=== PATIENT | female | born 1960 | race Caucasian/White ===

== ENCOUNTER 2016-11-11 05:32 | Inpatient (IN) | payer OTHER ==
[2016-10-27 08:48] LABS: HEMATOCRIT 35.8 % (37.0-47.0); HEMOGLOBIN 12.2 gm/dL (12.0-15.0); MCH 31.9 pg (26.0-34.0); MCV 93.8 fL (80.0-100.0); RBC 3.82 mil/uL (4.20-5.00); RDW 13.1 % (10.5-14.5); WBC 6.5 thou/uL (4.0-11.0)
[2016-10-27 08:49] LABS: URINE BILIRUBIN NEGATIVE (Negative); URINE BLOOD TRACE (Negative); URINE COLOR YELLOW; URINE GLUCOSE-RANDOM* NEGATIVE (Negative); URINE KETONES NEGATIVE (Negative); URINE LEUKOCYTES-REFLEX NEGATIVE (Negative); URINE PROTEIN (DIPSTICK) NEGATIVE (Negative); URINE UROBILINOGEN 0.2 E.U./dl (0.2-1.0)
[2016-10-27 08:56] LABS: ALBUMIN 4.1 g/dL (3.4-5.0); CALCIUM 9.9 mg/dL (8.5-10.1); CREATININE 0.8 mg/dL (0.6-1.0); POTASSIUM 3.8 mmol/L (3.5-5.1)
[2016-10-27 09:17] LABS: PROTIME 9.8 Seconds (9.3-11.4)
[2016-11-11] VITALS (10 sets, daily range): BP systolic 110–135; BP diastolic 58–78
[~2016-11-11] VITALS: Ht 175.3 cm; Wt 77.1 kg
--- NOTE | ~2016-11-11 | EKG ---
[place] [address] [facility] [place] [address] ELECTROCARDIOGRAM REPORT Name: [facility]GA [facility] Room #: PRE IN EmilianoUnique#: [id number] Admission: Attend Phys: Jose Soliman MD Discharge: Date of : 56 Report #: [id number] THIS REPORT FOR: //name// [facility] Test Date: 2016-10-27 Test Time: 08:46:30 Pat Name: MEÑO COLUNGA Department: Room: Gender: F State Director: claire : 1960 Requested By: Jose Soliman Order Number: [id number] MD: Sergio Drake Measurements Intervals Continental Rate: 58 P: 22 UT: 191 QRS: 10 QRSD: 89 T: 34 QT: 427 QTc: 420 Interpretive Statements Incomplete analysis due to missing data in precordial lead(s) Sinus rhythm Missing lead(s): V6 No previous ECG available for comparison Electronically Signed On 10-27-2016 16:31:54 CDT by Sergio Drake [email or web address] <ELECTRONICALLY SIGNED> By: Sergio Drake MD, [facility] 10/27/16 1631 0846 5 Sergio Drake MD, FACC /EPI
--- NOTE | ~2016-11-11 | O ---
[facility] [address] OPERATIVE REPORT [facility] Room #: 410-P ADM IN M.R.#: [id number] Admission: 11/11/16 Attend Phys: Jose Soliman MD Discharge: Date of : 56 Report #: [id number] THIS REPORT FOR: //name// CC: TRICE Hernadez DATE OF SERVICE: 11/11/2016 PREOPERATIVE DIAGNOSES: Right knee degenerative joint disease, severe and right foot Juárez's neuroma. POSTOPERATIVE DIAGNOSES: Right knee degenerative joint disease, severe and right foot Juárez's neuroma. PROCEDURE: Right knee total knee arthroplasty and right foot Juárez's neuroma injection. SURGEON: Jose Soliman M.D. SILK WINDING MACHINE OPERATOR: DAVION Graves. INDICATIONS FOR SILK WINDING MACHINE OPERATOR: During the course of operation, extensive manipulation, retraction and limb positioning was required. This was afforded to me by my creative assistant. ANESTHETIC: General. INDICATIONS: See hospital H and P. IMPLANTS UTILIZED: Used a DePuy PFC knee system. We used a cruciate retaining femoral component size 4 narrow, size 3 tibial tray with a 10 mm spacer and a 38 mm oval dome patella. We prepped her right foot dorsum with ChloraPrep, a combination of 1 mL of Celestone and 1 mL of 0.5% Marcaine was infiltrated into the intermetatarsal region, second and third toes, where the patient preoperatively had indicated her pain was located. Care was taken to aspirate prior to infiltration. DESCRIPTION OF PROCEDURE: After adequate general anesthesia had been obtained, the patient's right lower extremity was prepped and draped in the usual meticulous sterile fashion. Limb was exsanguinated with gravity and tourniquet inflated to 300 torr. Anterior midline incision was made, subQ divided sharply. Hemostasis obtained with electrocautery. Medial parapatellar incision was made. We were careful to do a minimal medial release due to the patient's valgus deformity. The knee was flexed. The drill was used to drill the distal [facility] [address] [place] [address] OPERATIVE REPORT Name: MEÑO COLUNGA [facility] Room #: 410-P [facility] IN M.R.#: [id number] Admission: 11/11/16 Attend Phys: Jose Soliman MD Discharge: Date of : 56 Report #: [id number] femur. This hole was enlarged, irrigated, suctioned, and the intramedullary guide placed the full length of the femur. Valgus angle cutting guide was set at 70 degrees, which matched the patient's anatomy. The cutting guide was pinned into position and the distal cut was made. The measuring device determined the size 4 narrow was appropriate size for this patient. We marked the distal femur and impacted the cutting guide into position. The anterior, posterior and chamfer cuts were made. Rongeur was used to remove additional osteophytes. The ACL was transected, tibia translated anteriorly, menisci were excised. Drill was used to drill the central portion of the tibia. This hole was enlarged, irrigated, suctioned, and the intramedullary guide placed the full length of the tibia. Proximal tibial cutting guide placed at appropriate height, proximal tibia cut was made, 3 tray gave us the best coverage on the tibia. We put the trial component in position and the 10 spacer gave us the best flexion and extension gap. Patella was then measured, cutting guide clamped into place, patellar cut was made, 38 template gave us the best coverage. Pedicles were drilled, trial component put in position. It tracked normally. The knee was taken through several cycles of flexion, extension to determine optimal tibial tray position. It was then marked and the tibial keel cuts were made. The distal femur was drilled. We irrigated the knee copiously with antibiotic with both pulse lavage and antibiotic irrigation. We then placed bone plugs in the proximal tibia and the distal femur. The cement was vacuum mixed and when it reached the appropriate consistency, the knee was thoroughly dried and then the tibial tray was cemented in place. Excess cement was removed. The polyethylene was impacted in place and the femur impacted in place and the knee was taken out to 30 degrees of flexion with uniform compression placed across components. Patellar button was then cemented into place and again excess cement was removed. The cement was allowed to fully cure. When it had done so, the knee was irrigated, dried thoroughly, and inspected. Drains were placed superolaterally, deep and superficial. The retinaculum was closed with a combination of interrupted stkzad-wd-zzick #1 Vicryl as well as running #1 Tevdek, subQ closed with 2-0 Monocryl, skin closed with autumn. Sterile compressive dressing applied. Tourniquet then deflated. By: [id number] Jose Soliman MD /nt
--- NOTE | ~2016-11-11 | HC ---
[facility] [place] [address] CONSULTATION Name: MEÑO COLUNGA NALINI Room #: [facility]- ADM IN M.R.#: [id number] Admission: 11/11/16 Attend Phys: Jose Soliman MD Discharge: Date of : 56 Report #: [id number] THIS REPORT FOR: //name// CC: Jose Hernadez DATE OF SERVICE: 11/11/2016 The patient was seen for consultation on November 11. REASON FOR CONSULTATION: Medical management. HISTORY OF PRESENT ILLNESS: The patient is a 56-year-old female who underwent right knee replacement surgery earlier today. The patient is doing well, and her pain is controlled. She has no complaints. The patient has no major medical problems. She has history of hypertension, and she takes medications for this. She is on losartan and hydrochlorothiazide. She denies chest pain, shortness of breath, blurry vision, headaches or other symptoms. PAST MEDICAL HISTORY: 1. Hypertension. 2. DJD. CURRENT MEDICATIONS: Reviewed and documented in the patient's chart. FAMILY HISTORY: Reviewed and not pertinent to the patient's current condition. SOCIAL HISTORY: The patient is a pharmacist. She does not smoke cigarettes, and reports social alcohol intake. REVIEW OF SYSTEMS: As above in HPI section, all others negative. PHYSICAL EXAMINATION: GENERAL: The patient is healthy looking middle-aged female who is in no apparent distress. VITAL SIGNS: Blood pressure is 129/68, heart rate is 63 and regular, respirations 16 and temperature is 98.0. HEENT: Pupils are equal. Eye movements are normal. NECK: JVD is not appreciated. The patient has no thyromegaly. RESPIRATORY: Chest moves symmetrically with breathing. LUNGS: Clear to auscultation bilaterally. CARDIOVASCULAR: The patient has regular rhythm and rate. She has no murmurs, gallops or rubs. GASTROINTESTINAL: Abdomen is soft, nondistended and nontender. Bowel sounds [facility] [address] [place] [address] CONSULTATION Name: MEÑO COLUNGA [facility] Room #: [address] [place] [address] [place] [facility].#: [id number] Admission: 11/11/16 Attend Phys: Jose Soliman MD Discharge: Date of : 56 Report #: [id number] are present. The patient has no hepatomegaly or splenomegaly. MUSCULOSKELETAL: The patient has no edema, cyanosis or clubbing. Right leg is in cast. NEUROLOGIC: The patient is alert and oriented x 3. Her examination is nonfocal. SKIN: The patient has no skin lesions. LABORATORY DATA: Couple of weeks ago, BMP and CBC were all normal. ASSESSMENT AND PLAN: 1. Degenerative joint disease, status post right knee replacement surgery earlier today. The patient is recovering well. Further management and plan per orthopedic surgeon. 2. Hypertension, well controlled. Home medications will be continued unchanged. Medications will be held if patient is hypotensive. 3. Deep venous thrombosis prophylaxis. The patient is started on Xarelto. We will continue to follow the patient during the hospitalization. Once again, thank you very much for allowing us to participate in the care of your patient. <ELECTRONICALLY SIGNED> By: Serena Moore MD 11/14/16 1454 1159 [id number] Serena Moore MD /nt
[~2016-11-11 05:32] MED LIST: ASPIR 8181 MG PO; CITRACAL + BON1 EACH PO; FISH OIL + D31 EACH PO; FOSAMAX 70 MG T70 MG PO; HYDROCHLOROTHIA25 M1 PO; LISINOPRIL40 MG PO; LOSARTAN POTAS100 MG PO; MELOXICAM15 MG PO; MULTI VITAMIN1 EACH PO; VITAMIN D32000 UNI1 PO; VITAMIN D35000 UNIT PO
[2016-11-12] VITALS (7 sets, daily range): BP systolic 105–148; BP diastolic 54–64
[2016-11-12 06:06] LABS: ABSOLUTE NEUTROPHILS 11.5 thou/uL (1.4-8.2); BASOPHILS 0.1 % (0.0-2.0); HEMATOCRIT 31.4 % (37.0-47.0); HEMOGLOBIN 10.6 gm/dL (12.0-15.0); MCHC 33.9 g/dL (28.0-37.0); MCV 94.6 fL (80.0-100.0); MONOCYTES 9.3 % (1.0-8.0); PLATELET COUNT 267 thou/uL (150-400); POLYS 80.6 % (36.0-66.0); RBC 3.32 mil/uL (4.20-5.00); RDW 12.7 % (10.5-14.5); WBC 14.3 thou/uL (4.0-11.0)
[2016-11-12 06:10] LABS: MANUAL DIFF NO
[2016-11-12 06:21] LABS: CALCIUM 9.2 mg/dL (8.5-10.1); CREATININE 0.9 mg/dL (0.6-1.0); POTASSIUM 3.2 mmol/L (3.5-5.1)
[2016-11-13 04:00] VITALS: BP 116/60
[2016-11-13 05:19] LABS: HEMATOCRIT 26.5 % (37.0-47.0); MCH 32.5 pg (26.0-34.0); MCV 95.4 fL (80.0-100.0); RBC 2.78 mil/uL (4.20-5.00); RDW 12.8 % (10.5-14.5); WBC 10.3 thou/uL (4.0-11.0)
[2016-11-13] MEDS ORDERED: XARELTO10 MG PO (06:51)
[2016-11-13] MEDS ORDERED: PERCOCET 10-321 EACH PO (06:51)
[2016-11-13] MEDS ORDERED: MS CONTIN15 MG PO (06:51)
[2016-11-13 08:32] VITALS: BP 104/52
[2016-11-13 13:38] VITALS: BP 105/54
[2016-11-13 20:49] VITALS: BP 135/58
[2016-11-14 03:09] VITALS: BP 153/69
[2016-11-14 03:45] LABS: HEMOGLOBIN 9.6 gm/dL (12.0-15.0); MCH 32.4 pg (26.0-34.0); MCHC 34.1 g/dL (28.0-37.0); MCV 94.9 fL (80.0-100.0); RBC 2.96 mil/uL (4.20-5.00); RDW 12.6 % (10.5-14.5); WBC 11.1 thou/uL (4.0-11.0)
[2016-11-14 07:59] VITALS: BP 133/63
[2016-11-14 12:43] VITALS: BP 105/54
== END 2016-11-14 14:40 | disposition home health service (06) | DRG 470 ==
LOC: TBA 05:32 → 4N 05:32 → PRE 08:16 → 4N 10:09 → PRE 11:05 → ENTRNSPT 11-14 14:13 → EDTRNSPTSTS 11-14 14:17 → 4N 11-14 14:40
PROVIDERS: Internal Medicine Endocrinology, Diabetes & Metabolism; Orthopaedic Surgery
PROC: 0SRC0J9 Replacement of Right Knee Joint with Synthetic Substitute, Cemented, Open Approach (ICD-10-PCS; principal; 2016-11-11)
DX: M17.11 Unilateral primary osteoarthritis, right knee (principal); I10 Essential (primary) hypertension; M81.0 Age-related osteoporosis without current pathological fracture; M17.12 Unilateral primary osteoarthritis, left knee; E87.6 Hypokalemia; Z88.1 Allergy status to other antibiotic agents; Z88.2 Allergy status to sulfonamides; Z79.899 Other long term (current) drug therapy; Z23 Encounter for immunization; Z82.49 Family history of ischemic heart disease and other diseases of the circulatory system
CPT/HCPCS: 10790; 50010; 50101; 50415; 50954; 51130; 51225; 51320; 51412; 51771; 52001; 53000; 53078; 53364; 56525; 56527; 62110; 62900; 64042; 64043; 70005

== ENCOUNTER 2017-01-27 05:24 | Inpatient (IN) | payer OTHER ==
[2017-01-12 08:53] LABS: HEMATOCRIT 35.8 % (37.0-47.0); HEMOGLOBIN 11.9 gm/dL (12.0-15.0); MCHC 33.1 g/dL (28.0-37.0); MCV 93.7 fL (80.0-100.0); RBC 3.82 mil/uL (4.20-5.00); RDW 13.8 % (10.5-14.5); WBC 8.8 thou/uL (4.0-11.0)
[2017-01-12 09:03] LABS: URINE BILIRUBIN NEGATIVE (Negative); URINE BLOOD NEGATIVE (Negative); URINE COLOR YELLOW; URINE GLUCOSE-RANDOM* NEGATIVE (Negative); URINE KETONES NEGATIVE (Negative); URINE LEUKOCYTES-REFLEX NEGATIVE (Negative); URINE PROTEIN (DIPSTICK) NEGATIVE (Negative); URINE SPECIFIC GRAVITY <= 1.005 (1.003-1.035); URINE UROBILINOGEN 0.2 E.U./dl (0.2-1.0)
[2017-01-12 09:04] LABS: CALCIUM 10.4 mg/dL (8.5-10.1); CREATININE 0.8 mg/dL (0.6-1.0); POTASSIUM 4.1 mmol/L (3.5-5.1)
[2017-01-12 09:06] LABS: PROTIME 9.9 Seconds (9.3-11.4)
[2017-01-27] VITALS (7 sets, daily range): BP systolic 108–140; BP diastolic 61–83
[~2017-01-27] VITALS: Ht 175.3 cm; Wt 72.6 kg
--- NOTE | ~2017-01-27 | O ---
[facility] [place] [address] OPERATIVE REPORT Name: [facility]ER [facility] Room #: 411-P ADM IN M.R.#: [id number] Admission: 01/27/17 Attend Phys: Jose Soliman MD Discharge: Date of : 56 Report #: [id number] THIS REPORT FOR: //name// CC: TRICE Hernadez DATE OF SERVICE: 01/27/2017 PREOPERATIVE DIAGNOSIS: Left knee degenerative joint disease, severe. POSTOPERATIVE DIAGNOSIS: Left knee degenerative joint disease, severe. PROCEDURE: Left total knee arthroplasty. SURGEON: Jose Soliman M.D. HISTOLOGY TEACHER: DAVION Graves. ANESTHETIC: General. INDICATIONS: See [facility] H and P. IMPLANTS UTILIZED: We used a [employer] knee system. We used a size 7 press-fit cruciate-retaining femur. We used a size 5 tibial tray Na II with an 11-mm spacer and a 32-diameter round patella. DESCRIPTION OF PROCEDURE: After adequate general anesthesia had been obtained, the patient's left lower extremity was prepped and draped in the usual meticulous sterile fashion. Limb was exsanguinated with gravity, tourniquet inflated to 300 torr. Anterior midline incision was made, subQ divided sharply. Hemostasis obtained with electrocautery. Medial parapatellar incision was made. Infrapatellar fat pad excised. Medial release performed. The drill was used to drill the distal femur. This was enlarged, irrigated and suctioned and then the intramedullary guide placed to full length of the femur. The distal femoral cutting guide was placed in 6 degrees of valgus, which matched the patient's anatomy and then we made the distal femoral cut. We used a measuring device to determine the size, a 7 was the appropriate size for this patient. We marked the distal femur and impacted the cutting guide into position. The anterior, posterior and chamfer cuts were made. Rongeur was used to remove additional osteophytes. At this time, the ACL was transected, tibia translated anteriorly and menisci excised. The drill was used to drill central portion of the tibia. This hole was enlarged, irrigated and suctioned and the intramedullary guide placed to full length of the tibia. The proximal tibial cutting guide was placed at [address] [address] OPERATIVE REPORT Name: MEÑO WHEELER [facility] Room #: 411-P [facility] IN M.R.#: [id number] Admission: 01/27/17 Attend Phys: Jose Soliman MD Discharge: Date of : 56 Report #: [id number] appropriate height. Proximal tibia cut was made. We placed the trial components in position with a 7 femur, 5 tray, which gave us the best coverage and 11 spacer and she had the best flexion and extension gap. She was little tight in extension on the lateral side due to her valgus deformity and we released the IT band and this improved the balance. Patella tracked normally. At this time, the patella was measured, cutting guide clamped into place and patellar cut was made. A 32 template gave us the best coverage. Pedicles were drilled, trial component put in position and it tracked normally. At this time, the knee was taken through several cycles of flexion and extension to determine tibial tray rotation. Rotation was marked. The distal femur was punched. The tibial keel cuts were made. We irrigated the knee with both pulse lavage and antibiotic irrigation. We then placed bone plugs in the proximal tibia and distal femur. The cement was vacuum mixed and when it reached the appropriate consistency, the knee was thoroughly dried, the tibial tray was cemented in place and excess cement was removed. The polyethylene was impacted in place and the femur impacted in place. The knee was taken out to 30 degrees of flexion with uniform compression placed across the components. Patellar button was then cemented into place and again excess cement was removed. At this time, irrigation was placed in the wound and allowed to rest in the wound until the cement was fully cured. When it had done so, the knee was irrigated, dried thoroughly and inspected. Drains were placed superolaterally, both deep and superficial. The retinacular layer was closed with combination of interrupted vgqkrg-jn-viufk #1 Vicryl as well as a running #1 Tevdek. SubQ closed with 2-0 Monocryl, skin closed with autumn. Sterile compressive dressing applied. Tourniquet deflated. <ELECTRONICALLY SIGNED> By: Jose Soliman MD 01/29/17 2304 [id number] Jose Soliman MD /nt
[~2017-01-27 05:24] MED LIST changes: +MS CONTIN15 MG PO; +PERCOCET 10-321 EACH PO; +XARELTO10 MG PO
[2017-01-28 04:25] VITALS: BP 127/63
[2017-01-28 05:42] LABS: HEMATOCRIT 28.2 % (37.0-47.0); HEMOGLOBIN 9.9 gm/dL (12.0-15.0); MCH 32.8 pg (26.0-34.0); MCHC 35.2 g/dL (28.0-37.0); MCV 93.1 fL (80.0-100.0); RBC 3.03 mil/uL (4.20-5.00); RDW 13.6 % (10.5-14.5)
[2017-01-28 08:00] VITALS: BP 112/55
[2017-01-28 08:23] LABS: CREATININE 0.8 mg/dL (0.6-1.0); POTASSIUM 3.5 mmol/L (3.5-5.1)
[2017-01-28 13:12] VITALS: BP 116/60
[2017-01-28 16:00] VITALS: BP 125/50
[2017-01-28 20:00] VITALS: BP 134/58
[2017-01-29 04:00] VITALS: BP 136/61
[2017-01-29 06:07] LABS: HEMATOCRIT 25.7 % (37.0-47.0); HEMOGLOBIN 8.7 gm/dL (12.0-15.0); MCH 31.6 pg (26.0-34.0); MCHC 33.8 g/dL (28.0-37.0); MCV 93.5 fL (80.0-100.0); RBC 2.75 mil/uL (4.20-5.00); RDW 13.6 % (10.5-14.5); WBC 8.8 thou/uL (4.0-11.0)
[2017-01-29 08:00] VITALS: BP 129/63
[2017-01-29 16:00] VITALS: BP 119/62
[2017-01-29 20:00] VITALS: BP 133/67
[2017-01-30 04:00] VITALS: BP 124/66
[2017-01-30 05:26] LABS: HEMATOCRIT 25.9 % (37.0-47.0); HEMOGLOBIN 8.9 gm/dL (12.0-15.0); MCH 31.9 pg (26.0-34.0); MCHC 34.3 g/dL (28.0-37.0); MCV 92.8 fL (80.0-100.0); RBC 2.79 mil/uL (4.20-5.00); RDW 13.8 % (10.5-14.5)
[2017-01-30] MEDS ORDERED: XARELTO10 MG PO (07:20)
[2017-01-30 08:35] VITALS: BP 104/55
[2017-01-30 11:08] VITALS: BP 104/55
[2017-01-30] MEDS ORDERED: CYCLOBENZAPRINE5 MG PO (12:24)
== END 2017-01-30 13:35 | disposition home health service (06) | DRG 470 ==
LOC: 4N 05:24 → TBA 05:24 → PRE 08:09 → 4N 10:15 → PRE 11:07 → ENTRNSPT 01-30 13:29 → EDTRNSPTSTS 01-30 13:33 → 4N 01-30 13:35
PROVIDERS: Internal Medicine; Orthopaedic Surgery
PROC: 3E0T3BZ Introduction of Anesthetic Agent into Peripheral Nerves and Plexi, Percutaneous Approach (ICD-10-PCS; principal; 2017-01-27)
PROC: 0SRD0J9 Replacement of Left Knee Joint with Synthetic Substitute, Cemented, Open Approach (ICD-10-PCS; principal; 2017-01-27)
DX: M17.12 Unilateral primary osteoarthritis, left knee (principal); I10 Essential (primary) hypertension; I95.9 Hypotension, unspecified; Z88.1 Allergy status to other antibiotic agents; Z88.8 Allergy status to other drugs, medicaments and biological substances
CPT/HCPCS: 10790; 50010; 50101; 50415; 50915; 50954; 51130; 51225; 51412; 51771; 53078; 53364; 56525; 56527; 62110; 62900; 64042; 64043; 70005